=== PATIENT | male | born 1980 | race Hispanic/Latino ===

== ENCOUNTER 2017-03-03 14:07 | Outpatient (CLI) | payer OTHER ==
--- NOTE | 2017-03-04 12:05 | Magnetic Resonance Report ---
MRI THORACIC SPINE WITHOUT CONTRAST: 03/03/17 CLINICAL: Back pain. TECHNIQUE: Sagittal and axial T1 and T2, and sagittal STIR sequences on a 1.5 Lu magnet. FINDINGS: Mild anterior wedging of the T11 vertebral body but normal marrow signal on all sequences. Milder anterior wedging of the T12 vertebral body with normal signal on all sequences. The rest of the bodies are normal in height. Normal alignment. Mild central posterior disc bulges at T10-11, T11-12 and T12-L1. The spinal cord is normal size with normal signal. Mild effacement of the thecal sac at T10-11 and T11-12 but no mass effect on the cord. IMPRESSION: 1. Remote mild anterior wedge compression fractures of T11 and T12. 2. Mild degenerative disc disease with small disc bulges at T10-11, T11-12 and T12-L1. 3. No acute or subacute fracture. 4. No cord lesion.
--- NOTE | 2017-03-04 12:20 | Magnetic Resonance Report ---
MRI LUMBAR SPINE WITHOUT CONTRAST: 03/03/17 CLINICAL: Back pain. TECHNIQUE: Sagittal and axial T1 and T2, and sagittal STIR sequences on a 1.5 Lu magnet. FINDINGS: Normal vertebral body height, alignment and disc spaces. The overall marrow signal is normal. Mild Modic endplate changes at L1-L2 three. The conus medullaris is normal and terminates at T12-L1. L1-2: Intact. L2-3: Intact. L3-4: A large focal central disc protrusion narrows the spinal canal. Bilateral facet hypertrophy and moderate bilateral neural foraminal narrowing. L4-5: A central annular tear and small focal central disc protrusion. Mild bilateral facet hypertrophy and facet joint fluid. L5-S1: A moderate size broad-based central disc protrusion. Bilateral facet hypertrophy and moderate bilateral neural foraminal narrowing. IMPRESSION: Disc protrusions at L3-4, L4-5 and L5-S1. Moderate bilateral neural foraminal narrowing at L3-4 and L5-S1.
== END 2017-03-03 14:08 | disposition home or self-care (01) ==
LOC: MRI 14:07
PROVIDERS: ATTEND Internal Medicine
DX: S22.080A Wedge compression fracture of T11-T12 vertebra, initial encounter for closed fracture (principal); M51.26 Other intervertebral disc displacement, lumbar region; M51.27 Other intervertebral disc displacement, lumbosacral region; M51.34 Other intervertebral disc degeneration, thoracic region; M51.35 Other intervertebral disc degeneration, thoracolumbar region; X58.XXXA Exposure to other specified factors, initial encounter; Y93.89 Activity, other specified; Y92.89 Other specified places as the place of occurrence of the external cause; Y99.8 Other external cause status
CPT/HCPCS: 72146; 72148